=== PATIENT | female | born 1990 | race Caucasian/White ===

== ENCOUNTER → 2020-03-09 11:28 | Outpatient (BNVA) | payer OTHER, SELFPAY | PROVIDERS: Visit Provider Physician Assistant Medical | DX: M79.601 Pain in right arm (principal); M54.12 Radiculopathy, cervical region | CPT/HCPCS: 72050; 99203 ==

== ENCOUNTER → 2020-03-15 08:24 | Outpatient (BNVA) | payer OTHER, SELFPAY | PROVIDERS: PCP Internal Medicine; Visit Provider Internal Medicine | DX: M54.2 Cervicalgia (principal); M54.10 Radiculopathy, site unspecified | CPT/HCPCS: 99213 ==

== ENCOUNTER → 2020-03-23 12:52 | Outpatient (BNVA) | payer OTHER, SELFPAY | PROVIDERS: PCP Internal Medicine; Visit Provider Internal Medicine | DX: M79.603 Pain in arm, unspecified (principal) | CPT/HCPCS: 99214 ==

== ENCOUNTER 2020-04-05 10:00 | Outpatient (RCR) | payer OTHER, BC, SELFPAY ==
--- NOTE | 2020-03-13 12:17 | MHC.PT.EP ---
[facility] [place] Office [place] Office [place] Office [address] Constanza Osorio [address] [phone] F: [phone] F: [phone] F: [phone] F: [phone] Physical Therapy Plan of Care Date of Evaluation: 03/13/20 Date of Surgery: Diagnosis: RIGHT UE RADICULAR PAIN Assessment: 29 YO FEMALE REF TO PT WITH H/O RIGHT UE RADICULAR SXS W H/O PROGRESSIVE EXACERBATION IN 12/2019 AFTER REPETITIVE OVERHEAD WORK. Pt HAS HAD 2 COURSES OF STEROIDS W MINIMAL RELIEF- SHE HAS BEEN OOW SINCE MID FEBRUARY 2020. Pt IS RIGHT HAND DOMINANT. SHE PRESENTS WITH DECREASED POSTURAL AWARENESS W ASSOC (+) SOFT TISSUE IRRIT AND PAIN IN RIGHT CERV/ SH GIRDLE/ SCAP, AND (+) RADICULAR SXS IN RIGHT UE TO HAND (LOWER CERV). SHE HAS (+) Trp RIGHT FOREARM WAD. SHE HAS LIMITATIONS W CERVICAL ROM AND DECR STRENGTH IN HER MID BACK. FUNCTIONALLY, SHE IS LIMITED WITH SLEEPING, LIFTING, SITTING, OVERHEAD TASKS, OR ADLs REQUIRING INCR EFFORT. Pt WOULD BENEFIT FROM PT INTERVENTION TO ADDRESS PAIN, SELF-SX MGMT TECHN, IMPROVE POSTURE, DEV HEP, AND ASSIST HER W RTW. Frequency and Duration: The patient will be seen 2x WK x 4 WKS Short Term Goals: *Pt REPORTS DECR RIGHT UE RADIC SXS BY 75% AND OVERALL Rt SH/ CERV PAIN 2-3/10 W REG ADLs IN 2 WKS *Pt INDEP SELF -CORRECT OF POSTURE AND DEMON PROPER BODY MECH W 3:3 SIMUL ADL/ WORK TASKS IN 2 WKS Environmental Sampler Goals: *Pt INDEP W HEP ADDRESSING MOBILITY AND STRENGTHENING AND SELF-SX MGMT TECHN IN 4 WKS *Pt RESUME REG ADLs / ACTIVITY LEVEL EVIDENT W IMPROVED SPADI SCORE BY 8 (AT EVAL 19/50) POINTS IN 4WKS Treatment Plan: Modalities to reduce pain, spasms and effusion. Manual therapy to restore motion and function. Therapeutic exercise to improve strength and flexibility. Neuromuscular re-education for posture and balance. Therapeutic activities to return to functional activities of daily living. Electronically signed by: Destinee Demarco PT Please sign and return to therapist. Thank you for your referral.
--- NOTE | 2020-04-12 12:22 | MHC.PT.DC ---
[facility] [place] Office [place] Office [place] Office [address] Constanza Osorio [address] [phone] F: [phone] F: [phone] F: [phone] F: [phone] Physical Therapy Discharge Report Diagnosis: RIGHT UE RADICULAR PAIN Date of Surgery: Date of Evaluation: 03/13/20 Date of Discharge: Treatments to Date: 8 Cancellations to Date: 0 No Shows to Date: 0 Discharge Status: Discharge Summary: KELTON APPEARS CONFIDENT WITH HEP AND SYMPTOM MANAGEMENT. SHE IS ANTICIPATING FOLLOWING UP WITH WORK CONNECTION AND THEN RETURNING TO WORK. SHE HAS AGREED TO CONTACT US WITH ANY QUESTIONS OR DIFFICULTIES WITH HOME PROGRAM. Electronically signed by: LANRE COY PT, DPT Please sign and return to therapist. Thank you for your referral.
== END 2020-05-24 09:57 | disposition other institution (70) ==
LOC: HO.PT 10:00
PROVIDERS: PCP Internal Medicine; Visit Provider Internal Medicine
DX: M54.10 Radiculopathy, site unspecified (principal)
CPT/HCPCS: 97110; 97140; 97162; 97530

== ENCOUNTER → 2020-04-06 07:57 | Outpatient (BNVA) | payer OTHER, SELFPAY | PROVIDERS: PCP Internal Medicine; Visit Provider Internal Medicine | DX: M54.10 Radiculopathy, site unspecified (principal) | CPT/HCPCS: 99213 ==

== ENCOUNTER → 2020-04-18 11:14 | Outpatient (BNVA) | payer OTHER, SELFPAY | PROVIDERS: PCP Internal Medicine; Visit Provider Physician Assistant | DX: M79.601 Pain in right arm (principal) | CPT/HCPCS: 99213 ==

== ENCOUNTER → 2020-05-01 11:15 | Outpatient (BNVA) | payer OTHER, SELFPAY | PROVIDERS: PCP Internal Medicine; Visit Provider Internal Medicine | DX: M79.601 Pain in right arm (principal) | CPT/HCPCS: 99213 ==